=== PATIENT | female | born 1965 | race Caucasian/White ===

== ENCOUNTER 2022-06-01 13:32 | Outpatient (CLI) | payer OTHER, SELFPAY ==
--- NOTE | ~2022-06-01 | MR_ITS ---
EXAMINATION: MR knee RT wo con DATE: 06/01/2022 14:44 INDICATION: Right knee popped getting into vehicle 10 weeks ago, right knee pain and instability. TECHNIQUE: Magnetic resonance imaging (MRI) of the right knee was performed without intravenous contr ast. Sequences included axial PD-weighted FS FSE, coronal PD-weighted FSE and PD-weighted FS FSE, sag ittal PD-weighted FSE, and sagittal T2-weighted FS FSE. COMPARISON: None. FINDINGS: Medial compartment: Vertically oriented tear of the posterior horn with medial extrusion. Severe full-thickness cartilage loss and osteophytosis. Lateral compartment: Horizontal cleavage type tear of the anterior horn, lateral meniscus. Severe full-thickness cartilage loss diffusely. Severe osteophytosis. Patellofemoral compartment: Moderate diffuse cartilage loss. Severe osteophytosis. Ligaments and tendons: Thinning of the ACL fibers with discontinuous fibers, thickening and abnormal signal near the inserti on. The MCL, PCL, and LCL are intact. Remaining flexor and extensor tendons are intact. Fluid: Large volume joint fluid. Osseous/other: No suspicious focal or diffuse marrow signal. IMPRESSION: 1. Vertical tear of the posterior horn, medial meniscus, with meniscal extrusion. 2. Horizontal tear of the anterior horn of the lateral meniscus. 3. Partial tear of the ACL. 4. Severe tricompartmental osteoarthritis. 5. Large right knee joint effusion. Reviewed, dictated and finalized at location [facility] IMPRESSION: 1. Vertical tear of the posterior horn, medial meniscus, with meniscal extrusio n. 2. Horizontal tear of the anterior horn of the lateral meniscus. 3. Partial tear of the ACL. 4. Severe tricompartmental osteoarthritis. 5. Large right knee joint effusion.
== END 2022-06-01 13:33 | disposition home or self-care (01) ==
LOC: ANHIMG 13:33
PROVIDERS: PCP Family Medicine; Visit Provider Physician Assistant
DX: M25.361 Other instability, right knee (principal); M17.11 Unilateral primary osteoarthritis, right knee; M25.461 Effusion, right knee; S83.241A Other tear of medial meniscus, current injury, right knee, initial encounter
CPT/HCPCS: 73721

== ENCOUNTER 2024-01-11 01:43 | Day surgery (SDC) | payer OTHER, SELFPAY ==
[2023-12-26 13:32] VITALS: BMI 48.1
[2024-01-11 08:52] VITALS: BP 135/95; PULSE 104; RESP 18; TEMP 36.2; O2SAT 97
[2024-01-11] MEDS: LACTATED RINGERS 1,000 ML 150 ML IV CONT (09:09)
--- NOTE | 2024-01-11 09:26 | WPDANESEPPF ---
Anes - Initial Pre Proc Eval Procedure: Operation Date: 01/11/24 10:00 Proposed Procedures p Esophagogastroduodenoscopy & Colonoscopy - Enio Fermin DO Date/Time: 01/11/24 09:26 Surgeon: Enio Fermin DO Pre Op Diagnosis: Screening for malignant neoplasm of colon Patient Data Age: 58 Gender: F Height: 1.63 m Weight: 132.9 kg Last Vital Signs Temp 97.2 F L 01/11/24 08:52 Pulse 104 H 01/11/24 08:52 Resp 18 01/11/24 08:52 BP 135/95 H 01/11/24 08:52 Pulse Ox 97 01/11/24 08:52 O2 Del Method Room Air 01/11/24 08:52 Allergies Allergy/AdvReac Type Severity Reaction Status Date / Time No Known Allergies Allergy Verified 01/11/24 08:49 Home Medications Medication Instructions Recorded Confirmed Type ixekizumab 80 mg/mL subcutaneous 80 mg subcut MONTHLY 03/29/22 12/26/23 History auto-injector (Taltz Autoinjector) albuterol sulfate 90 mcg/actuation See Rx Instructions .Route 10/02/23 12/26/23 Rx aerosol inhaler .COMPLEX #6.7 grams aspirin 81 mg chewable tablet 81 mg PO DAILY 01/11/24 01/11/24 History Patient hx anesthesia problems: none Family hx anesthesia problems: none Results Review: All pre-operative results and documents have been reviewed as part of the pre-operative evaluation. [facility] Past Medical History Medical History Acute cystitis without hematuria Acute maxillary sinusitis, unspecified Acute pain of left knee Acute pain of right knee Arthritis of right knee Bacterial vaginosis Chest pain in adult Chronic obstructive pulmonary disease with (acute) exacerbation Contusion of left knee, subsequent encounter Essential (primary) hypertension Left knee DJD Menstrual bleeding problem Mixed hyperlipidemia Morbid (severe) obesity due to excess calories Primary osteoarthritis of both knees Pulmonary emphysema Right knee DJD Sprain of left patella Tobacco dependence syndrome Weight gain Surgical History Surgical History History of x2 Family History Family History Father Malignant neoplasm of prostate Other Family history of alcoholism Family history of malignant neoplasm Social History Social History Social History: Smoking packs per day: 1 Smoking cigarettes per day: 20.0 Years smoked: 20 Smoking pack-years: 20.00 Smoking status: Current every day smoker Tobacco type: cigarettes and e-cigarettes/vaping Smoking end date: 06/26/21 Additional smoking assessment comments: Pt vapes still Alcohol intake: current Alcohol use details: bottle of wine daily Substance use: never Substance use type: does not use Lack of Transportation: No Lack of Food: Never True Current Housing: I Have Housing Concerned About Future Housing: No Difficulty Paying Gas/Electric Bills: No Difficulty Paying for Meds: No Currently Unemployed: No Education: Decline to Answer Difficulty w/ Childcare or Family Care: No Living arrangements: with family Occupation/Education: occupation Gender identity (if verbalized by the patient): Female Sexual Orientation (if Verbalized by the Patient): Straight or Heterosexual Spiritual care concerns: No Anes - Eval Final PreProcedure Day of Procedure 01/11/24 09:26 Patient weight: super morbidly obese Heart: regular rate and rhythm Lungs: clear to auscultation Airway: Mallampati scale class III Neurological: alert and oriented Last oral intake: >/= 8 hours ASA classification: III Emergent: no Anesthetic plan: proceed Anesthesia type and monitoring: general GIVS and standard monitoring Results Review: All pre-operative results and documents have been reviewed as part of the pre-operative evaluation. Informed Consent: The patient's an
--- NOTE | 2024-01-11 09:50 | PM.IMHP ---
H&P: HPI History of Present Illness Date/Time: 01/11/24 09:50 Chief Complaint: dysphagia, screening for colorectal cancer Narrative: this is a 58-year-old woman who presents with dysphagia with solid foods. She also is here for screening colonoscopy. She has never had a colonoscopy before. She denies any hematochezia or melena. She denies any family history of colon cancer. She does have frequent reflux and also smokes. She denies any heavy use of NSAIDs but does take a daily baby aspirin Review of Systems Review of Systems: All systems reviewed & are unremarkable except as noted in HPI and below Constitutional: Constitutional: Denies chills, Denies fever(s), Denies headache(s) and Denies weight loss Eyes: Eyes: Denies change in vision ENT: Denies dizziness, Denies headache(s), Denies neck mass and Denies throat swelling Cardiovascular: Cardiovascular: Denies chest pain, Denies lightheadedness and Denies dyspnea Respiratory: Respiratory: Denies cough, Denies dyspnea and Denies wheezing Gastrointestinal: Gastrointestinal: Denies abdominal pain, Denies change in bowel habits, Denies nausea and Denies vomiting Genitourinary: Genitourinary: Denies hematuria and Denies dysuria Musculoskeletal: Musculoskeletal: Reports as per HPI Integumentary/Breasts: Skin/Breast: Reports as per HPI Neurologic: Denies dizziness and Denies headache(s) Allergic/Immunologic: Allergic/Immunologic: Denies throat swelling and Denies wheezing [facility] Past Medical History Medical History Acute cystitis without hematuria Acute maxillary sinusitis, unspecified Acute pain of left knee Acute pain of right knee Arthritis of right knee Bacterial vaginosis Chest pain in adult Chronic obstructive pulmonary disease with (acute) exacerbation Contusion of left knee, subsequent encounter Essential (primary) hypertension Left knee DJD Menstrual bleeding problem Mixed hyperlipidemia Morbid (severe) obesity due to excess calories Primary osteoarthritis of both knees Pulmonary emphysema Right knee DJD Sprain of left patella Tobacco dependence syndrome Weight gain Surgical History Surgical History History of x2 Family History Family History Father Malignant neoplasm of prostate Other Family history of alcoholism Family history of malignant neoplasm Social History Social History Social History: Smoking packs per day: 1 Smoking cigarettes per day: 20.0 Years smoked: 20 Smoking pack-years: 20.00 Smoking status: Current every day smoker Tobacco type: cigarettes and e-cigarettes/vaping Smoking end date: 06/26/21 Additional smoking assessment comments: Pt vapes still Alcohol intake: current Alcohol use details: bottle of wine daily Substance use: never Substance use type: does not use Lack of Transportation: No Lack of Food: Never True Current Housing: I Have Housing Concerned About Future Housing: No Difficulty Paying Gas/Electric Bills: No Difficulty Paying for Meds: No Currently Unemployed: No Education: Decline to Answer Difficulty w/ Childcare or Family Care: No Living arrangements: with family Occupation/Education: occupation Gender identity (if verbalized by the patient): Female Sexual Orientation (if Verbalized by the Patient): Straight or Heterosexual Spiritual care concerns: No Meds Home Medications and Allergies Home Medications Medication Instructions Recorded Confirmed Type ixekizumab 80 mg/mL subcutaneous 80 mg subcut MONTHLY 03/29/22 12/26/23 History auto-injector (Taltz Autoinjector) albuterol sulfate 90 mcg/actuation See Rx Instructions .Route 10/02/23 12/26/23 Rx aerosol inhaler .COMPLEX #6.7 grams aspirin 81 mg
--- NOTE | 2024-01-11 10:04 | SUR.OPER ---
EGD: START-[id number] END-1018, COLON: START-1024 END- 1037
[2024-01-11 10:45] VITALS: BP 106/65; PULSE 89; RESP 19; O2SAT 100
[2024-01-11 10:55] VITALS: BP 126/83; PULSE 84; RESP 18; O2SAT 99
[2024-01-11 11:05] VITALS: BP 120/82; PULSE 75; RESP 18; O2SAT 100
[2024-01-11 12:16] LABS: HPYLORIRESULT Negative
== END 2024-01-11 11:19 | disposition home or self-care (01) ==
PROVIDERS: PCP Family Medicine; Visit Provider Surgery
PROC: 0DJ08ZZ Inspection of Upper Intestinal Tract, Via Natural or Artificial Opening Endoscopic (ICD-10-PCS; CPT 43235; principal; 2024-01-11 10:00)
DX: Z12.11 Encounter for screening for malignant neoplasm of colon (principal); D12.8 Benign neoplasm of rectum; K22.10 Ulcer of esophagus without bleeding; R13.10 Dysphagia, unspecified; K29.80 Duodenitis without bleeding; K44.9 Diaphragmatic hernia without obstruction or gangrene; K22.2 Esophageal obstruction; I10 Essential (primary) hypertension; E78.2 Mixed hyperlipidemia; E66.01 Morbid (severe) obesity due to excess calories; Z68.43 Body mass index [BMI] 50.0-59.9, adult; F17.210 Nicotine dependence, cigarettes, uncomplicated
CPT/HCPCS: 43239; 43249; 45385; 87081; 88305; 88312; 88342; C1726; J2704; J7120